=== PATIENT | female | born 1970 | race Caucasian/White ===

== ENCOUNTER 2024-08-28 09:29 | Outpatient (CLI) | payer OTHER | END 2024-08-28 09:30 | disposition home or self-care (01) | LOC: BICMRI 09:29 | PROVIDERS: ATTEND Obstetrics & Gynecology | DX: Z01.89 Encounter for other specified special examinations (principal); Z80.3 Family history of malignant neoplasm of breast | CPT/HCPCS: A9577; C8908 ==